=== PATIENT | female | born 1990 | race Caucasian/White ===

== ENCOUNTER 2019-06-29 21:33 | Emergency (ER) | payer OTHER, SELFPAY ==
[2019-06-29 21:50] VITALS: BP 129/72; PULSE 115; RESP 20; TEMP 37.1; O2SAT 99
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
--- NOTE | 2019-06-29 22:27 | DI.RAD.S_ITS ---
PROCEDURE: XR FOOT RT MIN 3V INDICATIONS: trauma right foot TECHNIQUE: 3 views of the foot were acquired. COMPARISON: None. FINDINGS: Bones: No acute fractures or dislocations. No suspicious bony lesions. Soft tissues: No tibiotalar joint effusion. Achilles tendon appears normal. Mild soft tissue swelling of the right forefoot. IMPRESSION: Soft tissue swelling of the right forefoot without underlying fracture or dislocation. No significant discrepancy with preliminary assessment/report by the emergency department staff. Dictated by: Julian Early M.D. on 06/30/2019 at 8:10 Approved by: Julian Early M.D. on 06/30/2019 at 8:11
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
[2019-06-29 22:53] VITALS: BP 128/79; PULSE 107; O2SAT 97
== END 2019-06-29 23:07 | disposition home or self-care (01) ==
PROVIDERS: Emergency Provider Emergency Medicine
DX: S40.811A Abrasion of right upper arm, initial encounter (principal); S80.811A Abrasion, right lower leg, initial encounter; V95.01XA Helicopter crash injuring occupant, initial encounter
CPT/HCPCS: 73590; 73630; 99282; 99283